=== PATIENT | female | born 1945 | race Caucasian/White ===

== ENCOUNTER 2016-11-29 21:38 | Emergency (ER) | payer OTHER ==
[~2016-11-29] VITALS: Ht 149.9 cm; Wt 77.7 kg
[~2016-11-29 21:38] MED LIST: ASPEC81 PO; ATV5 PO; CLOP1TAB15 PO; CLTP PO; PANT40TA PO; SIMV10TA2 PO
[2016-11-29 21:43] VITALS: TEMP 36.8; Ht 149.9 cm; Wt 77.7 kg
[2016-11-29] MEDS ORDERED: BUPR200T2 PO (21:52)
[2016-11-29] MEDS ORDERED: MULT-506 PO (21:52)
[2016-11-29] MEDS ORDERED: OXYCODONE HCL IR 5 MG TAB (IMMEDIATE RELEASE) PO STA (22:06)
[2016-11-29] MEDS ORDERED: LORAZEPAM 0.5 MG TAB SL STA (22:56)
[2016-11-29] MEDS ORDERED: CALCTAB7 PO (23:10)
[2016-11-29] MEDS ORDERED: ROSU20TA PO (23:10)
[2016-11-29] MEDS ORDERED: CYAN100020 PO (23:10)
[2016-11-29] MEDS ORDERED: LORA-741 PO (23:10)
[2016-11-29] MEDS ORDERED: CALC-279 (23:10)
[2016-11-29] MEDS ORDERED: HYDR12.55 PO (23:10)
[2016-11-29] MEDS ORDERED: ATEN-173 PO (23:10)
[2016-11-29] MEDS ORDERED: PANT40TA PO (23:10)
[2016-11-29] MEDS ORDERED: GABA600T PO (23:10)
[2016-11-29] MEDS ORDERED: FAMO10TA16 PO (23:10)
[2016-11-29] MEDS ORDERED: SERT-234 PO (23:10)
[2016-11-29] MEDS ORDERED: CETI10TA84 PO (23:10)
[2016-11-29] MEDS ORDERED: ASPI81TA28 PO (23:10)
[2016-11-29] MEDS ORDERED: OXYC1TAB3 PO (23:49)
[2016-11-30] MEDS ORDERED: OXYCODONE IR HOME PACK PO ONE
[2016-11-30 00:10] VITALS: BP 161/94; PULSE 91; O2SAT 94
--- NOTE | 2016-11-30 02:10 | EMERGENCY ROOM VISIT NOTE ---
History Report prepared by Errol: Kelsey Sainz Under the Supervision of: Dr. Pascual Mayorga M.D. First contact with patient: 22:00 Chief Complaint: SHOULDER PAIN Stated Complaint: HURT SHOULDER History of Present Illness The patient is a 71 year old female who presents to the Emergency Room with complaints of constant left shoulder pain secondary to a fall occurring 1 hour THREAD SINGER. The patient tripped over a bar on a swing on her deck. She fell forward and put both arms straight out in front of her to catch herself. She states that most of her weight landed on her right arm. Since this episode she has been experiencing right sided neck pain and right shoulder pain that radiates down her arm to her elbow. The patient rates her pain as an 8/10 in severity. Movement of her shoulder and arm exacerbates her pain. She does not have worsening pain with movement of the head. She did not hit her head when she fell. The patient denies headache, chest pain, shortness of breath, abdominal pain, hip pain, and back pain. Source of History: patient Onset: 1 hour THREAD SINGER Position: shoulder (left) Symptom Intensity: 8/10 Quality: other (radiating) Timing: constant Modifying Factors (Worsening): movement (of right arm) Modifying Factors (Relieving): other (remaining still) Associated Symptoms: + neck pain, No headache, No chest pain, No SOB, No abdominal pain, No back pain Note: Pt denies hip pain. Review of Systems See HPI for pertinent positives & negatives. A total of 10 systems reviewed and were otherwise negative. Past Medical & Surgical Medical Problems: (1) Cervical spinal stenosis (2) Esophageal reflux (3) Sciatica Family History No pertinent history stated. Social History Smoking Status: Never Smoker Marital Status: Housing Status: lives with significant other Occupation Status: unemployed Current/Historical Medications Scheduled Aspirin (Aspirin Ec), 81 MG PO DAILY Atenolol (Tenormin), 25 MG PO DAILY Bupropion (Wellbutrin Sr), 200 MG PO BID Calcium Carbonate-Vitamin D W/ (Caltrate 600 Plus), 1 TAB PO BID Calcium Citrate-Vitamin D (Calcium Citrate + D), 2 TABS BID Cetirizine (Zyrtec), 10 MG PO DAILY Cyanocobalamin (Vitamin B12), 1,000 MCG PO MONTHLY Gabapentin (Neurontin), 600 MG PO BID Hydrochlorothiazide (Hydrochlorothiazide), 1 TAB PO DAILY Multivitamin (Multivitamin), 1 TAB PO DAILY Pantoprazole (Protonix), 40 MG PO DAILY Rosuvastatin Calcium (Crestor), 20 MG PO DAILY Sertraline (Zoloft), 100 MG PO DAILY Scheduled PRN Famotidine (Pepcid Ac), 10 MG PO DAILY PRN for reflux Lorazepam (Ativan), 0.5 MG PO Q6H PRN for Anxiety and/or Sedation Oxycodone Ir (Roxicodone Ir), 5 MG PO Q4H PRN for Pain Allergies Coded Allergies: Diazepam (Verified Allergy, Unknown, Unknown rxn, 11/02/10) Meperidine (Verified Allergy, 02/27/10) HIVES Physical Exam Vital Signs Date Time Temp Pulse Resp B/P (MAP) Pulse Ox O2 Delivery O2 Flow Rate FiO2 11/30/16 00:10 91 18 161/94 94 11/29/16 23:40 91 18 161/94 94 Room Air 11/29/16 21:43 36.8 68 20 190/94 93 Room Air Physical Exam Constitutional: Vital signs reviewed. Eyes: Pupils are equal round reactive to light. Conjunctiva are noninjected. ENT: Pharynx is clear without erythema or exudate. Mucous membranes are moist. Neck supple without meningeal signs. No midline tenderness to the cervical spine. Respiratory: Clear to auscultation bilaterally. Breath sounds are equal bilaterally. Cardiovascular: Regular rate and rhythm. No rubs or gallops. GI: Soft, nondistended and nontender. Bowel sounds are present. Musculoskeletal: Diffuse tenderness to the right shoulder and elbow without deformity. Normal distal pulses. No peripheral edema. No lower extremity tenderness. Integumentary: No cyanosis. Neurological: The patient is awake and alert. No focal deficits. Psychiatric: Normal affect. Medical Decision & Procedures ER Provider Diagnostic Interpretation: Radiology results stated below as interpreted by myself: Cervical spine x-ray shows degenerative changes, no acute fracture or dislocation. Right elbow x-ray is non-diagnostic, pt unable to comply with views. Right humeral and right shoulder x-rays demonstrate a humeral head fracture. Medications Administered Medications (Trade) Dose Ordered Sig/Thompson Route Start Time Stop Time Status Last Admin Dose Admin Oxycodone HCl (Roxicodone Immediate Rel Tab) 5 mg NOW STAT PO 11/29/16 22:06 11/29/16 22:08 DC 11/29/16 22:18 5 MG Lorazepam (Ativan Tab) 0.5 mg NOW STAT SL 11/29/16 22:56 11/29/16 22:57 DC 11/29/16 23:37 0.5 MG Oxycodone HCl (Roxicodone Immediate Rel 5MG Home Pack) 1 homehick UD ONCE PO 11/30/16 00:00 11/30/16 00:01 DC 11/30/16 00:10 1 HOMEPACK ED Course 2200: The patient was evaluated in room C12B. A complete history and physical exam was performed. 2205: Oxycodone HCl 5 mg PO 2255: The patient requested an Ativan which she takes at home. 2255: Lorazepam 0.5 mg SL 2342: I reassessed the patient at this time. She is feeling better and resting comfortably. I discussed the results and treatment plan with the patient. I discussed the x-ray results with the patient. She was unable to comply with the elbow x-ray, but on reexamination she had no tenderness of the elbow.. I answered all pertaining questions that she had. She expressed understanding and verbalized agreement. The patient will be discharged home. I gave precautions regarding oxycodone use. She is going to follow-up with her orthopedic doctor in [place]. 0000: Oxycodone HCl PO 1 [facility] Medical Decision This is a 71-year-old female presents with injuries after a fall. Differential diagnosis includes shoulder dislocation, humeral fracture, contusion, elbow dislocation, elbow fracture, cervical strain. I did perform a limited focused review of portions of the patient's old chart on the electronic medical record. The patient has had no recent pertinent visits to this hospital. Medication Reconciliation: I attest that I have personally reviewed the patient' s current medication list. Blood Pressure Screening: Patient was found to have an elevated blood pressure and was referred to their primary doctor for recheck and further treatment. I did evaluate the patient as noted above. She is presenting with arm pain after fall. She is neurovascularly intact distally. I did treat her with oxycodone by mouth one pill. She also requested Ativan which she takes at home. She is given Ativan 0.5 mg sublingually. I did order and personally review the patient's x-rays as described above. She does have a humeral head fracture but no dislocation. Cervical spine x-rays do not show any signs of acute fracture or dislocation. Her pain is mostly on the right side and she has no midline tenderness or cervical spine. I therefore did not feel a CT was indicated. The elbow is not well visualized because she could not move her arm very well. On reassessment she does not have any significant tenderness to the elbow and so I did not feel it was necessary to try to repeat these x-rays and give her more pain. She states she does have a orthopedic doctor she can follow up with. She was advised to call them tomorrow for an appointment. She did not wish to have a local referral even though her orthopedic doctor was in [place]. She was given a prescription for oxycodone and given precautions regarding this medication. She was discharged with a shoulder immobilizer. [place] Drug Monitoring Program Search Results: patient reviewed within database Drug Monitoring Findings: No matching patients. Impression Primary Impression: Humeral head fracture Additional Impression: Fall Scribe Attestation The scribe's documentation has been prepared under my direct and personally reviewed by me in its entirety. I confirm that the note above accurately reflects all work, treatment, procedures, and medical decision making performed by me. Departure Information Dispostion Home / Self-Care Prescriptions Oxycodone Ir (Roxicodone Ir) 5 Mg Tab 5 MG PO Q4H Y for Pain, #20 TAB Prov: Pascual Mayorga M.D. 11/29/16 Referrals No Doctor, Assigned (PCP) Gildardo Mao M.D. Forms HOME CARE DOCUMENTATION FORM, IMPORTANT VISIT INFORMATION Patient Instructions Humerus Fx, My [facility] Additional Instructions You have been examined and treated today on an emergency basis only. This is not a substitute for, or an effort to provide, complete comprehensive medical care. It is impossible to recognize and treat all injuries or illnesses in a single emergency department visit. It is therefore important that you follow up closely with your orthopedic physician. Call as soon as possible for an appointment. Return for worsening symptoms or if you develop numbness or weakness in your right arm or fingers or any other concerning symptoms. Problem Qualifiers Primary Impression: Humeral head fracture Encounter type: initial encounter Fracture type: closed Laterality: right Qualified Codes: S42.291A - Other displaced fracture of upper end of right humerus, initial encounter for closed fracture Additional Impression: Fall Encounter type: initial encounter Qualified Codes: W19.XXXA - Unspecified fall, initial encounter
--- NOTE | 2016-11-30 06:43 | DIAGNOSTIC IMAGING REPORT ---
RIGHT HUMERUS MIN 2 VIEWS ROUTINE CLINICAL HISTORY: Pain status post trauma COMPARISON: None. DISCUSSION: There is a proximal right humeral fracture. No dislocations are visualized. No additional fractures are evident. There is an old mid to lower thoracic compression deformity. IMPRESSION: Proximal right humeral fracture with apparent displacement of the greater tuberosity. No dislocation is visualized. Electronically signed by: Christopher Moncada M.D. 11/30/2016 6:42 AM Dictated Date/Time: 11/30/2016 6:40 AM
--- NOTE | 2016-11-30 06:45 | DIAGNOSTIC IMAGING REPORT ---
RIGHT SHOULDER MIN 2 VIEWS ROUTINE CLINICAL HISTORY: Right shoulder pain status post trauma COMPARISON: None. DISCUSSION: There is a proximal humeral fracture which extends to the greater tuberosity. The fracture fragment is distracted slightly in excess of 1 cm. There is no dislocation. IMPRESSION: Acute proximal humeral fracture through the greater tuberosity. No evidence of dislocation. Electronically signed by: Christopher Moncada M.D. 11/30/2016 6:43 AM Dictated Date/Time: 11/30/2016 6:43 AM
--- NOTE | 2016-11-30 06:46 | DIAGNOSTIC IMAGING REPORT ---
RIGHT ELBOW SINGLE VIEW CLINICAL HISTORY: Elbow pain status post trauma COMPARISON: None. DISCUSSION: A single oblique lateral view is provided for interpretation. The patient refused additional views. No fractures are identified in this single view. The study is felt to be nondiagnostic. IMPRESSION: Nondiagnostic study. The patient refused additional imaging. No fractures are visualized on the single image provided. Electronically signed by: Christopher Moncada M.D. 11/30/2016 6:45 AM Dictated Date/Time: 11/30/2016 6:44 AM
--- NOTE | 2016-11-30 06:51 | DIAGNOSTIC IMAGING REPORT ---
C-SPINE ROUTINE 4 OR 5 VIEWS CLINICAL HISTORY: Right-sided neck pain status post trauma COMPARISON STUDY: No previous studies for comparison. FINDINGS: The prevertebral soft tissues are normal. There is a slight reversal of the normal cervical lordosis. There are moderate degenerative changes within the lower cervical spine. No acute fractures or traumatic subluxations are visualized. There are dense calcifications in the right neck, likely secondary to atherosclerotic carotid disease. IMPRESSION: Multilevel degenerative change. No acute fractures or traumatic subluxations are visualized. Electronically signed by: Christopher Moncada M.D. 11/30/2016 6:49 AM Dictated Date/Time: 11/30/2016 6:48 AM
== END 2016-11-30 00:15 | disposition home or self-care (01) ==
LOC: C.EDB 21:38 → C.EDC 11-30 00:15
DX: S42.291A Other displaced fracture of upper end of right humerus, initial encounter for closed fracture (principal); W18.09XA Striking against other object with subsequent fall, initial encounter; Y92.018 Other place in single-family (private) house as the place of occurrence of the external cause; M48.02 Spinal stenosis, cervical region; K21.9 Gastro-esophageal reflux disease without esophagitis; Z79.82 Long term (current) use of aspirin; Z79.899 Other long term (current) drug therapy